=== PATIENT | male | born 1975 | race Caucasian/White ===

== ENCOUNTER 2020-02-09 04:33 | Observation (INO) ==
[2020-02-09] MEDS ORDERED: *HR* Promethazine 25 MG/ML VIAL IVP PRN (06:26)
[2020-02-09] MEDS ORDERED: Acetaminophen 325 MG TABLET PO PRN (06:26)
[2020-02-09] MEDS ORDERED: Naloxone 0.4 MG/ML INJ IVP PRN (06:26)
[2020-02-09] MEDS ORDERED: 0.9 % Sodium Chloride 1,000 ML IVC SCH (06:30)
[2020-02-09] MEDS ORDERED: Morphine Sulfate 2 MG/ML SYRINGE IVP PRN (06:34)
[2020-02-09 07:21] LABS: Basophils # 0.1 K/mcL (0.0-0.2); Eosinophils # 0.4 K/mcL (0.0-0.6); Eosinophils % 3.3 %; Hematocrit 42.4 % (37.5-50.1); Hemoglobin 14.5 g/dL (12.9-16.9); Immature Granulocytes % 0.5 % (0-4); Lymphocytes # 3.4 K/mcL (0.6-4.6); Lymphocytes % 31.5 %; Mean Corpuscular HGB Conc 34.2 g/dL (31.6-35.5); Mean Corpuscular Hemoglobin 31.5 pg (28.0-33.3); Mean Platelet Volume 11.7 fL (9.4-12.4); Monocytes # 0.8 K/mcL (0.0-1.3); Monocytes % 7.2 %; Neutrophils # 6.1 K/mcL (1.6-8.9); Platelet Count 159 K/mcL (140-400); Red Blood Count 4.61 M/mcL (4.19-5.50); Red Cell Distribution Width 12.7 % (11.5-14.5); Segmented Neutrophils % 56.5 %; White Blood Count 10.8 K/mcL (4.3-11.1)
[2020-02-09 07:25] LABS: Prothrombin Time 10.9 Seconds (9.4-12.1)
[2020-02-09 09:32] LABS: BUN/Creatinine Ratio 12 (6-26); Blood Urea Nitrogen 11 mg/dL (6-20); Calcium 8.8 mg/dL (8.6-10.3); Carbon Dioxide 24 mEq/L (23-29); Chloride 108 mEq/L (98-107); Glucose 94 mg/dL (70-105); Magnesium 2.2 mg/dL (1.6-2.6); Osmolality,Calculated 287 (280-300); Phosphorous 3.1 mg/dL (2.7-4.5); Potassium 3.5 mEq/L (3.5-5.1); Sodium 139 mEq/L (136-145); eGFR For African Americans > 60 (> 60); eGFR For Non-African Americans > 60 (> 60)
[2020-02-09 11:04] LABS: C-Reactive Protein < 5 mg/L (Less than 10); Uric Acid 6.2 mg/dL (2.3-7.6)
[2020-02-09 11:19] VITALS: BP 132/84
[2020-02-09] MEDS ORDERED: Indomethacin 25 MG CAPSULE PO SCH (12:00)
== END 2020-02-09 14:20 | disposition home or self-care (01) ==
LOC: 3NENU → SUATTDRO 05:58
PROVIDERS: ADMIT Family Medicine; ATTEND Family Medicine